=== PATIENT | female | born 1990 | race Caucasian/White ===

== ENCOUNTER 2023-08-02 22:00 | Inpatient (IN) | payer OTHER ==
[2023-08-02] MEDS: SODIUM CHLORIDE 1,000 ML IV SCH (23:30)
[2023-08-02 23:34] LABS: EPI CELLS >36 /uL (0-25.1); HYALINE CASTS 2 /uL (0-3.1); URINE APPEARANCE CLOUDY; URINE BACTERIA 1380 /uL (0-1359); URINE BILIRUBIN NEGATIVE (NEGATIVE); URINE COLOR YELLOW; URINE GLUCOSE (UA) NEGATIVE (NEGATIVE); URINE KETONE TRACE (NEGATIVE); URINE LEUK ESTERASE TRACE (NEGATIVE); URINE NITRITE NEGATIVE (NEGATIVE); URINE PROTEIN TRACE (NEGATIVE); URINE RBC 25 /uL (0-23.9); URINE UROBILINOGEN 0.2 mg/dL (0.2-1.0); URINE WBC 75 /uL (0-25.8)
[2023-08-02 23:36] LABS: INR 0.87 (0.83-1.09); PROTHROMBIN TIME (PATIENT) 10.1 SEC (9.7-13.0)
[2023-08-02 23:37] LABS: BASO % 0.8 % (0-2.0); EOS % 0.3 % (0-4.5); HEMATOCRIT 35.3 % (32.4-45.2); HEMOGLOBIN 11.6 GM/dL (10.7-15.3); LYMPH % 24.8 % (8-40); MCH 28.6 pg (25.7-33.7); MEAN CELL VOLUME 86.5 fl (80-96); MONO % 6.5 % (3.8-10.2); NEUT % 67.6 % (42.8-82.8); RBC 4.08 M/mm3 (3.60-5.2); RDW 15.5 % (11.6-15.6); WHITE BLOOD COUNT 12.9 K/mm3 (4.0-10.0)
[2023-08-02 23:55] LABS: URINE CRYSTALS PRESENT /hpf
[2023-08-02 23:58] LABS: MEAN PLT VOLUME 7.8 fl (7.5-11.1); PLATELET COUNT 360 10^3/uL (134-434); PLATELET ESTIMATE ADEQUATE
[2023-08-02 23:59] VITALS: BMI 40.7
[2023-08-03] MEDS ORDERED: BETAMET ACET/BETAMET NA PH 30 MG/5 ML VIAL ONE (00:01)
[2023-08-03] MEDS: BETAMET ACET/BETAMET NA PH 30 MG/5 ML VIAL IM SCH (00:05)
[2023-08-03 00:59] LABS: POTASSIUM 4.8 mmol/L (3.5-5.1)
[2023-08-03 01:02] LABS: ALBUMIN 2.3 g/dl (3.4-5.0); BLOOD UREA NITROGEN 12.2 mg/dL (7-18); CALCIUM 8.8 mg/dL (8.5-10.1)
[2023-08-03 01:05] LABS: CREATININE 0.5 mg/dL (0.55-1.3); URIC ACID 6.1 mg/dL (2.6-7.2)
[2023-08-03 01:10] LABS: BILIRUBIN,TOTAL 0.3 mg/dL (0.2-1)
[2023-08-03 01:12] LABS: TOT PROT 6.5 g/dl (6.4-8.2)
[2023-08-03] MEDS: NIFEdipine E.R. 30 MG TABLET PO SCH (10:46)
[2023-08-03] MEDS: PRENATAL VITAMINS W/ FOLIC ACID TABLET (FP) PO SCH (10:46)
[2023-08-03] MEDS: NITROFURANTOIN MONOHYD/M-CRYST 100 MG CAPSULE PO SCH (10:47)
[2023-08-03] MEDS: ESCITALOPRAM OXALATE 10 MG TABLET PO SCH (10:47)
[2023-08-03] MEDS: ASPIRIN 81 MG CHEWABLE TABLETS PO SCH (10:51)
[2023-08-04 09:21] VITALS: BP 123/76; PULSE 87; RESP 18; TEMP 98.2
== END 2023-08-04 13:50 | disposition home or self-care (01) | DRG 833 ==
LOC: JDEL 22:00 → JLDR 22:40 → J3W 08-03 02:00
PROVIDERS: ADMIT Obstetrics & Gynecology; ATTEND Obstetrics & Gynecology
DX: O11.3 Pre-existing hypertension with pre-eclampsia, third trimester (principal); O99.213 Obesity complicating pregnancy, third trimester; Z3A.31 31 weeks gestation of pregnancy
CPT/HCPCS: 36415; 80053; 81003; 82570; 84156; 84550; 85025; 85610; 85730; 86850; 86900; 86901; 96372

== ENCOUNTER 2023-08-22 21:25 | Inpatient (IN) | payer OTHER ==
[2023-08-22 22:56] LABS: BASO % 0.1 % (0-2.0); EOS % 0.2 % (0-4.5); HEMATOCRIT 32.9 % (32.4-45.2); HEMOGLOBIN 11.1 GM/dL (10.7-15.3); MCH 28.1 pg (25.7-33.7); MCHC 33.7 g/dl (32.0-36.0); MEAN CELL VOLUME 83.4 fl (80-96); MEAN PLT VOLUME 7.9 fl (7.5-11.1); MONO % 6.8 % (3.8-10.2); NEUT % 68.9 % (42.8-82.8); PLATELET COUNT 386 10^3/uL (134-434); RBC 3.94 M/mm3 (3.60-5.2); RDW 15.7 % (11.6-15.6)
[2023-08-22 22:58] LABS: EPI CELLS >36 /uL (0-25.1); HYALINE CASTS 17 /uL (0-3.1); URINE APPEARANCE CLOUDY; URINE BACTERIA 1764 /uL (0-1359); URINE BILIRUBIN NEGATIVE (NEGATIVE); URINE COLOR DK YELLOW; URINE GLUCOSE (UA) NEGATIVE (NEGATIVE); URINE KETONE TRACE (NEGATIVE); URINE LEUK ESTERASE 1+ (NEGATIVE); URINE NITRITE NEGATIVE (NEGATIVE); URINE PROTEIN 2+ (NEGATIVE); URINE WBC 262 /uL (0-25.8)
[2023-08-22 23:09] LABS: POTASSIUM 4.5 mmol/L (3.5-5.1)
[2023-08-22 23:11] LABS: ALBUMIN 2.2 g/dl (3.4-5.0); BLOOD UREA NITROGEN 17.2 mg/dL (7-18)
[2023-08-22 23:14] LABS: CREATININE 0.7 mg/dL (0.55-1.3); URIC ACID 8.1 mg/dL (2.6-7.2)
[2023-08-22 23:16] LABS: BILIRUBIN,TOTAL 0.2 mg/dL (0.2-1); TOT PROT 5.8 g/dl (6.4-8.2)
[2023-08-22 23:35] LABS: URINE RBC 103.6 /uL (0-23.9)
[2023-08-23] MEDS ORDERED: LABETALOL HCL 200 MG TABLET (FP) ONE (00:18)
[2023-08-23] MEDS: LABETALOL HCL 200 MG TABLET (FP) PO ONE (00:20)
[2023-08-23] MEDS ORDERED: MAGNESIUM SULFATE 20GM/500ML - 20 GM/500 ML INFUS.BAG ONE ×3 (00:37→20:13)
[2023-08-23] MEDS: ELECTROLYTE-148 SOLN 1,000 ML IV SCH (01:00)
[2023-08-23] MEDS: MAGNESIUM SULFATE 20GM/500ML - 20 GM/500 ML INFUS.BAG IV SCH ×2 (01:10)
[2023-08-23 01:57] LABS: INR 0.94 (0.83-1.09); PROTHROMBIN TIME (PATIENT) 10.6 SEC (9.7-13.0)
[2023-08-23 02:00] LABS: ACTIVATED PTT 28.8 SECONDS (25.2-36.5)
[2023-08-23 04:19] VITALS: BMI 44.1
[2023-08-23] MEDS ORDERED: PHENYLEPHRINE HCL 10 MG/1 ML SINGLE DOSE VIAL ONE (08:20)
[2023-08-23] MEDS ORDERED: KETOROLAC TROMETHAMINE 30 MG/1 ML VIAL ONE (08:20)
[2023-08-23] MEDS ORDERED: FENTANYL CITRATE/PF 50 MCG/ML VIAL ONE (08:20)
[2023-08-23] MEDS ORDERED: ONDANSETRON 4 MG/2 ML VIAL ONE (08:20)
[2023-08-23] MEDS ORDERED: OXYTOCIN 10 UNITS/ML VIAL ONE (08:20)
[2023-08-23] MEDS ORDERED: morphine SULFATE/PF 1 MG/2 ML (2cc Syringe - QUVA) ONE (08:20)
[2023-08-23] MEDS ORDERED: ceFAZolin SODIUM 1 GM VIAL ONE (08:22)
[2023-08-23 09:49] LABS: CORD BASE EXCESS -7.9 mmol/L (0-2); CORD HCO3 20.2 mmHg (20-29); CORD PCO2 50.6 mmHg (30-78); CORD pH 7.218 (7.14-7.44)
[2023-08-23 09:52] LABS: CORD BASE EXCESS -8.7 mmol/L (0-2); CORD HCO3 19.8 mmHg (20-29); CORD PCO2 52.3 mmHg (30-78); CORD pH 7.196 (7.14-7.44)
[2023-08-23] MEDS: ESCITALOPRAM OXALATE 10 MG TABLET PO SCH (12:25)
[2023-08-23] MEDS ORDERED: METHYLERGONOVINE MALEATE 0.2 MG/1 ML AMP IM PRN (13:05)
[2023-08-23] MEDS ORDERED: ACETAMINOPHEN INJECTION 100 ML IVPB ONE ×2 (13:30→20:56)
[2023-08-23] MEDS: ACETAMINOPHEN 1000 MG/100 ML BAG IVPB PRN (13:40)
[2023-08-23] MEDS ORDERED: OXYTOCIN 20 UNITS in 0.9% NS 20 UNIT/1,000 ML INFUS.BAG IV ONE (14:17)
[2023-08-23] MEDS ORDERED: ONDANSETRON 4 MG/2 ML VIAL IVPUSH PRN (15:25)
[2023-08-23] MEDS: OXYTOCIN 20 UNITS in 0.9% NS 20 UNIT/1,000 ML INFUS.BAG IV SCH (18:00)
[2023-08-23] MEDS: SIMETHICONE 80 MG TAB.CHEW (FP) PO PRN (18:10)
[2023-08-23] MEDS ORDERED: IBUPROFEN 600 MG TABLET (FP) PO ONE (19:45)
[2023-08-23] MEDS: IBUPROFEN 600 MG TABLET (FP) PO PRN (19:50)
[2023-08-24 07:48] LABS: BASO % 0.3 % (0-2.0); EOS % 0.2 % (0-4.5); HEMATOCRIT 26.5 % (32.4-45.2); HEMOGLOBIN 8.9 GM/dL (10.7-15.3); LYMPH % 17.3 % (8-40); MCH 28.2 pg (25.7-33.7); MCHC 33.4 g/dl (32.0-36.0); MEAN CELL VOLUME 84.5 fl (80-96); MEAN PLT VOLUME 7.6 fl (7.5-11.1); MONO % 5.8 % (3.8-10.2); NEUT % 76.4 % (42.8-82.8); PLATELET COUNT 280 10^3/uL (134-434); RBC 3.14 M/mm3 (3.60-5.2); RDW 15.8 % (11.6-15.6); WHITE BLOOD COUNT 10.9 K/mm3 (4.0-10.0)
[2023-08-24] MEDS: ENOXAPARIN NA (PORCINE) 40 MG/0.4 ML DISP.SYRIN SQ SCH (09:04)
[2023-08-24] MEDS ORDERED: BISACODYL 10 MG SUPP.RECT RC PRN (13:05)
[2023-08-24] MEDS: oxyCODONE HCL 5 MG TABLET PO PRN ×2 (16:13→20:33)
[2023-08-25] MEDS: ACETAMINOPHEN 325 MG TABLET (FP) PO PRN (10:31)
[2023-08-25] MEDS: NIFEdipine E.R. 30 MG TABLET PO ONE (18:14)
[2023-08-25] MEDS: SENNOSIDES/DOCUSATE COMBO (SENNA PLUS) TABLET (UD) PO PRN (20:20)
[2023-08-25] MEDS: LABETALOL HCL 200 MG TABLET (FP) PO ONE (22:30)
[2023-08-26 06:26] LABS: BASO % 0.4 % (0-2.0); HEMATOCRIT 26.4 % (32.4-45.2); HEMOGLOBIN 8.5 GM/dL (10.7-15.3); LYMPH % 28.6 % (8-40); MCH 27.4 pg (25.7-33.7); MCHC 32.2 g/dl (32.0-36.0); MEAN CELL VOLUME 85.2 fl (80-96); MEAN PLT VOLUME 7.1 fl (7.5-11.1); MONO % 5.6 % (3.8-10.2); NEUT % 63.4 % (42.8-82.8); PLATELET COUNT 357 10^3/uL (134-434); RBC 3.09 M/mm3 (3.60-5.2); RDW 16.1 % (11.6-15.6); WHITE BLOOD COUNT 9.1 K/mm3 (4.0-10.0)
[2023-08-26] MEDS: NIFEdipine E.R. 30 MG TABLET PO SCH (09:01)
[2023-08-27 11:11] VITALS: BP 148/94; PULSE 84; RESP 17; TEMP 98
== END 2023-08-27 17:50 | disposition home or self-care (01) | DRG 788 ==
LOC: JDEL 21:25 → JLDR 08-23 → J3W 08-24 01:03
PROVIDERS: ADMIT Obstetrics & Gynecology; ATTEND Obstetrics & Gynecology
PROC: 10D00Z1 Extraction of Products of Conception, Low, Open Approach (ICD-10-PCS; principal; 2023-08-23)
DX: O11.4 Pre-existing hypertension with pre-eclampsia, complicating childbirth (principal); O60.14X0 Preterm labor third trimester with preterm delivery third trimester, not applicable or unspecified; O99.344 Other mental disorders complicating childbirth; F41.8 Other specified anxiety disorders; O99.284 Endocrine, nutritional and metabolic diseases complicating childbirth; E28.2 Polycystic ovarian syndrome; Z3A.34 34 weeks gestation of pregnancy; Z37.0 Single live birth
CPT/HCPCS: 36415; 36600; 59025; 80053; 81003; 82803; 83735; 84550; 85025; 85610; 85730; 86780; 86803; 86850; 86900; 86901; 88307-TC; 94010; J0131

== ENCOUNTER 2024-02-07 09:58 | Emergency (ER) | payer OTHER ==
[2024-02-07 10:08] VITALS: RESP 20; BMI 34.3
[2024-02-07] MEDS ORDERED: KETOROLAC TROMETHAMINE 15 MG/ML VIAL ONE (10:43)
[2024-02-07] MEDS ORDERED: DEXAMETHASONE SOD PHOSPHATE 10 MG/1 ML VIAL ONE (10:43)
[2024-02-07] MEDS: KETOROLAC TROMETHAMINE 15 MG/ML VIAL IVPUSH ONE (11:26)
[2024-02-07] MEDS: DEXAMETHASONE SOD PHOSPHATE 10 MG/1 ML VIAL IVPUSH ONE (11:26)
[2024-02-07] MEDS: LACTATED RINGERS SOLUTION 1,000 ML/1,000 ML INFUS.BAG IV STA (11:27)
[2024-02-07 11:39] LABS: HEMOGLOBIN 13.1 GM/dL (10.7-15.3)
[2024-02-07] MEDS ORDERED: CLINDAMYCIN 600MG PREMIX IVPB 600 MG/50 ML BAG IVPB ONE (11:41)
[2024-02-07 11:42] LABS: BASO % 0.2 % (0-2.0); HEMATOCRIT 38.4 % (32.4-45.2); LYMPH % 6.8 % (8-40); MCH 27.7 pg (25.7-33.7); MCHC 34.1 g/dl (32.0-36.0); MEAN CELL VOLUME 81.1 fl (80-96); MEAN PLT VOLUME 7.5 fl (7.5-11.1); MONO % 5.7 % (3.8-10.2); NEUT % 87.3 % (42.8-82.8); PLATELET COUNT 357 10^3/uL (134-434); RBC 4.74 M/mm3 (3.60-5.2); RDW 16.8 % (11.6-15.6)
[2024-02-07] MEDS: CLINDAMYCIN 600MG PREMIX IVPB 600 MG/50 ML BAG IVPB ONE (11:51)
[2024-02-07 11:58] LABS: CHLORIDE 104 mmol/L (98-107); SODIUM 134 mmol/L (136-145)
[2024-02-07 11:59] LABS: POTASSIUM 7.6 mmol/L (3.5-5.1)
[2024-02-07 12:00] LABS: ALBUMIN 3.6 g/dl (3.4-5.0); ANION GAP 7 mmol/L (4-13); BLOOD UREA NITROGEN 9.2 mg/dL (7-18); CALCIUM 9.3 mg/dL (8.5-10.1); CO2 24 mmol/L (21-32); GLUCOSE,RANDOM 103 mg/dL (74-106)
[2024-02-07 12:04] LABS: CREATININE 0.8 mg/dL (0.55-1.3)
[2024-02-07 12:05] LABS: THROAT:GRP A STREP NOT DETECTED (NOTDETECTED)
[2024-02-07 12:05] LABS: BILIRUBIN,TOTAL 0.5 mg/dL (0.2-1)
[2024-02-07 12:06] LABS: ALK PHOS 96 U/L (45-117)
[2024-02-07 12:09] LABS: SGPT/ALT 40 U/L (13-61)
[2024-02-07 12:11] LABS: SGOT/AST 89 U/L (15-37)
[2024-02-07 12:34] VITALS: BP 110/72; PULSE 98; TEMP 99
[2024-02-07 13:21] LABS: POTASSIUM 3.8 mmol/L (3.5-5.1)
[2024-02-07 13:22] LABS: BLOOD UREA NITROGEN 9.5 mg/dL (7-18); CALCIUM 8.9 mg/dL (8.5-10.1)
[2024-02-07 13:26] LABS: CREATININE 0.7 mg/dL (0.55-1.3)
== END 2024-02-07 15:10 | disposition home or self-care (01) ==
LOC: JER 09:58
PROC: 3E03329 Introduction of Other Anti-infective into Peripheral Vein, Percutaneous Approach (ICD-10-PCS; principal; 2024-02-07)
PROC: 3E033GC Introduction of Other Therapeutic Substance into Peripheral Vein, Percutaneous Approach (ICD-10-PCS; 2024-02-07)
PROC: 3E0333Z Introduction of Anti-inflammatory into Peripheral Vein, Percutaneous Approach (ICD-10-PCS; 2024-02-07)
DX: J02.9 Acute pharyngitis, unspecified (principal); R50.9 Fever, unspecified; R00.0 Tachycardia, unspecified; R59.0 Localized enlarged lymph nodes; Z20.822 Contact with and (suspected) exposure to COVID-19
CPT/HCPCS: 0241U-QW; 36415; 70491-TC; 80048; 80053; 84703; 85025; 87651; 99285-25; J1100; Q9967